=== PATIENT | female | born 2000 | race Caucasian/White ===

== ENCOUNTER 2021-07-10 22:04 | Emergency (ER) | payer OTHER, SELFPAY ==
[2021-07-10 22:04] VITALS: BP 132/80; PULSE 112; RESP 16; TEMP 36.1; O2SAT 100; BMI 23.0
--- NOTE | 2021-07-10 22:36 | EDS_ITS ---
HPI History of Present Illness Chief Complaint: Chest Pain Informant: patient and family Onset/Context/Timing Onset: Month(s) Activity at onset: sudden and onset Timing: Intermittent and Lasts (minutes) Quality: Positive for Pain (sometimes sharp, sometimes pleuritic) Location: Left Parasternal (w/o radiation) Current Severity: Gone Maximum Severity: Moderate Associated Symptoms: Positive for Palpitations (tachycardia) Narrative Narrative: Patient has been having episodes of chest discomfort and her heart rate tends to be fast when she has it, for months. She was told by her doctor she has an occasional irregularity in her rhythm, sometimes she feels them sometimes she does not, she has a cardiology appointment for August but has not seen cardiology yet. Her last episode of chest discomfort which she gets every day was around 2 hours ago, except her left arm started feeling numb at the same time and that is never happened before. Now her left arm still feels numb and tingly down to about her hand, but the chest is not bothering her and she feels none of the palpitations right now. She otherwise feels fine. No recent illness or injury. She states all of the symptoms seem to be more pronounced when she lies down in the last several months. CVD Risk Factors: Negative for Hypertension, Diabetes, Hypercholesterolemia, F amily History 1' </=55 and Smoking PE Risk Factors: Negative for Recent Travel/Surgery, Recent Immobilization, Prior DVT or PE, Cancer and OCP + Smoking + >/=35 PFSH PFSH Medical History Irregular heart beat Allergy/AdvReac Type Severity Reaction Status Date / Time No Known Allergies Allergy Verified 07/10/21 22:06 Social History Smoking Status: Never smoker ROS ROS ED Constitutional Constitutional ED: Denies chills or fever(s) Eyes Eyes: Denies change in vision or diplopia ENT ENT ED: Denies rhinorrhea or sore throat Cardiovascular Cardiovascular: Reports chest pain and palpitations Respiratory/Chest Respiratory/Chest: Denies cough or dyspnea Gastrointestinal Gastrointestinal: Denies abdominal pain, diarrhea, nausea or vomiting Genitourinary Genitourinary ED: Denies dysuria or hematuria Musculoskeletal Musculoskeletal: Denies back pain or neck pain Integumentary Denies abscess or rash Neurologic Neurologic: Reports paresthesias LUE; Denies headache(s) or weakness Psychiatric Psychiatric: Denies anxiety or suicidal thoughts EXAM Physical Exam Const Vital Signs: 07/10/21 22:04 07/10/21 22:12 07/10/21 22:45 Temperature 97 F L Temperature Source Temporal Pulse Rate 112 H Respiratory Rate 16 Respiratory Effort Normal Non-Labored Blood Pressure 132/80 H Blood Pressure Mean 97 Pulse Ox 100 100 Oxygen Delivery Method Room Air Room Air Positive well nourished and well developed General Appearance ED: well developed and NAD HEENT Reports moist mucous membranes normocephalic and atraumatic Eyes PERRL and EOMs intact bilaterally Neck full ROM and supple Resp normal respiratory effort and clear to auscultation bilaterally Cardio regular rate, regular rhythm and no murmurs Cardio Narrative: Mildly tachycardic. Occasional PVC/irregularity for the most part though regular. GI non-tender and non-distended Auscultation: normoactive bowel sounds Palpation: soft Back/Spine no CVA tenderness General Back: other FROM Extremity normal to inspection General Extremety ED: Negative for edema, pulses abnormal or tenderness General Extremity: Negative for edema or pulses abnormal Neuro oriented x3, CN's II-XII intact bilaterally and no sensory deficits noted Sensorium / Orientation: awake and alert Motor Exam: strength 5/5 throughout Skin no rashes or lesions noted and no wounds Heart Score History: Moderately Suspicious ECG: Normal Age: </= 45 years Risk Factors: No Risk Factors Score: 1 MDM MDM MDM Narrative Medical decision making narrative: Other than frequent PVCs mild tachycardia her EKG is normal and nonischemic. Patient is refusing all blood work and chest x- ray, as well as medications and wants to leave. We had a long discussion about the symptoms and the possible causes. She and family were present for all of the discussions and they understand that her goal here tonight is to evaluate and attempt to rule out diagnoses that are dangerous, and try to get her feeling better as well, admitting her for things that are dangerous. They are wondering why we can do a stress test and an echocardiogram tonight, it is Monday almost midnight, this test are not available nor indicated emergently at this time. As I discussed my recommendation not only is basic labs but troponin, chest x-ray, and a D-dimer in order to rule out pulmonary embolus as etiology for the symptoms. They states she had blood work 1 or 2 weeks ago, it was not done at this hospital, I do not have access to it and they do not have access to it, and as I discussed with them she unlikely had a troponin which even if she did, she needs again as well as a second measurement 2 hours later, as well as a D-dimer. The understand all this, she has capacity to make this decision family is with her and they would like to leave and after discussing possible treatments including beta-blockers, GI cocktail, I do not think she needs nitroglycerin or aspirin right now but those are options to, they declined and would like to leave without that as well. Rhythm Strip Rhythm Strip: Sinus Tach Rate: 103 Ectopy: PVC(s) (Frequent at times) EKG Initial EKG: Attestation: I personally reviewed and interpreted this EKG as follows: Interpretation: No Acute Injury Pattern and Sinus Tachycardia Comments: frequent PVCs, ST low 100s, otherwise normal Prior: No Prior Discharge Plan Triage Chief Complaint: Chest Pain ED Provider: Bronson Delacruz Dx/Rx/DC Orders Clinical Impression: Intermittent left-sided chest pain, Pain and numbness of left upper extremity, Ventricular ectopy Instructions: PVCs, ED Chest Pain, Uncertain Cause Primary Care Provider: Dariusz Martinez Referrals: Mekhi Sandy MD [STAFF PHYSICIAN] - (call for sooner appt if avail; otherwise, follow up with your doctor this coming week) Dariusz Martinez DO [Primary Care Provider] - Disposition Disposition: Against Medical Advice Capacity Capacity Assessment Tool Can the patient make a choice & communicate that choice?: Yes Can the patient understand benefits, risks and alternatives?: Yes Can the patient make a logical, rational choice?: Yes Is the choice the patient makes consistent w/ their values?: Yes Is there an impending, emergent risk to the patient?: Unable to Determine Does the patient have an Advance Directive?: No Is there a Surrogate Available?: Yes i.e. close relative (spouse, child, parent, sibling)?: Yes
--- NOTE | 2021-07-10 22:36 | EKG12_ITS ---
Test Reason : CP Blood Pressure : / mmHG Vent. Rate : 104 BPM Atrial Rate : 104 BPM P-R Int : 130 ms QRS Dur : 080 ms QT Int : 330 ms P-R-T Axes : 061 061 053 degrees QTc Int : 433 ms Sinus tachycardia with frequent Premature ventricular complexes Otherwise normal ECG Confirmed by JACI ALVAREZ, TD ([id number]), writer editor CHIKI ORDOÑEZ ([id number]) on 07/12/2021 12:57:02 PM Referred By: ASHLYN Confirmed By:TD BEATTY MD
[2021-07-10 22:45] VITALS: O2SAT 100
--- NOTE | 2021-07-10 22:46 | ED.RN ---
This nurse into start IV. pt wispering to SO. Pts SO expressing to this nurse that pt does not want blood work preformed. Stating pt just had blood work done and pt does not want to do it. This nurse educated pt, mom and SO on the importance of blood work. Pt still shaking her head no. Dr. Delacruz updated.
== END 2021-07-10 23:09 | disposition left against medical advice (07) ==
PROVIDERS: Emergency Provider Emergency Medicine; PCP Family Medicine; Visit Provider Emergency Medicine
DX: R07.9 Chest pain, unspecified (principal); R00.0 Tachycardia, unspecified; I49.3 Ventricular premature depolarization; R20.0 Anesthesia of skin
CPT/HCPCS: 93005; 99283; A4216